=== PATIENT | male | born 1995 | race African-American/Black ===

== ENCOUNTER 2018-12-31 18:43 | Emergency (ER) | payer OTHER ==
[2018-12-31 19:36] VITALS: BP 135/79; PULSE 55; RESP 16; TEMP 98.3
[2018-12-31] MEDS ORDERED: LIDOCAINE 1% INJ 10MG/ML (20 ML MDV) SQ ONE (20:34)
--- NOTE | 2018-12-31 22:24 | ED ---
General Adult HPI - General Chief complaint: Wound/Laceration Stated complaint: hand lac Time Seen by Provider: 12/31/18 19:51 Source: patient Mode of arrival: ambulatory Limitations: no limitations - History of Present Illness Initial comments: Patient is a 23-year-old male presents to the emergency department for a laceration on his left hand. Patient states that he was working with a chisel when it slipped and lacerated his hand. Patient reports the laceration is causing mild pain that does not radiate anywhere. Patient reports mild the last period patient denies any numbness or tingling or limited range of motion. Patient denies taking any medication to relieve the pain. Patient denies fever, nausea, vomiting. Patient states that his tetanus status is up-to-date. Patient denies erythema, swelling. She denies any foreign bodies at the site of laceration. - Related Data Previous Rx's Medication Instructions Recorded Albuterol Inhaler [Ventolin Hfa 2 puff INHALATION Q4HR PRN #1 11/01/15 Inhaler] inhaler Azithromycin [Zithromax Z-pack] 250 mg PO DIRECTED #6 tab 11/01/15 Allergies Allergy/AdvReac Type Severity Reaction Status Date / Time No Known Allergies Allergy Verified 12/31/18 19:36 Review of Systems ROS Statement: Those systems with pertinent positive or pertinent negative responses have been documented in the HPI. ROS Other: All systems not noted in ROS Statement are negative. Past Medical History Past Medical History: No Reported History History of Any Multi-Drug Resistant Organisms: None Reported Past Surgical History: Adenoidectomy, Tonsillectomy Past Psychological History: No Psychological Hx Reported Smoking Status: Current every day smoker Past Alcohol Use History: Occasional Past Drug Use History: Marijuana General Exam Limitations: no limitations General appearance: alert, in no apparent distress Head exam: Present: atraumatic, normocephalic, normal inspection Eye exam: Present: normal appearance, PERRL, EOMI Pupils: Present: normal accommodation ENT exam: Present: normal exam Neck exam: Present: normal inspection Respiratory exam: Present: normal lung sounds bilaterally Cardiovascular Exam: Present: regular rate, normal rhythm, normal heart sounds GI/Abdominal exam: Present: soft Extremities exam: Present: normal capillary refill, other (3 cm laceration on the palmar aspect of the left hand. +2 radial and ulnar pulses.) Back exam: Present: normal inspection. Absent: CVA tenderness (R), CVA tenderness (L) Neurological exam: Present: alert Psychiatric exam: Present: normal affect, normal mood Skin exam: Present: warm, intact, normal color Course Vital Signs 12/31/18 19:34 Temperature 98.3 F Pulse Rate 55 L Respiratory 16 Rate Blood Pressure 135/79 O2 Sat by Pulse 100 Oximetry Procedures - Laceration Laceration #1 Consent Obtained: verbal consent Indication: laceration Site: hand Size (cm): 3 Description: linear Depth: simple, single layer Anesthetic Used: lidocaine 1% Anesthesia Technique: local infiltration Amount (mls): 10 Pre-repair: irrigated extensively Type of Sutures: nylon Size of Sutures: 4-0 Number of Sutures: 6 Technique: simple, interrupted Patient Tolerated Procedure: well Medical Decision Making - Medical Decision Making Patient is a 23-year-old male presents emergency department for a laceration to left hand. I repaired the laceration with 6 sutures. Patient was advised on proper wound care structures. Patient advised to follow-up primary care. Patient advised to return to emergency department if symptoms worsen. No tetanus prophylaxis was necessary. Patient advised to return for suture removal in 10 days. Case discussed with physician. Disposition Clinical Impression: Laceration Disposition: HOME SELF-CARE Condition: Stable Instructions (If sedation given, give patient instructions): Laceration (DC) Additional Instructions: Please return for suture removal in 10 days. Please follow up primary care. Please return to emergency department if symptoms worsen. Is patient prescribed a controlled substance at d/c from ED?: No Referrals: None,Stated [Primary Care Provider] - 1-2 days Time of Disposition: 22:24
== END 2018-12-31 22:51 | disposition home or self-care (01) ==
LOC: EC 18:43
DX: S61.412A Laceration without foreign body of left hand, initial encounter (principal); F17.200 Nicotine dependence, unspecified, uncomplicated; W27.0XXA Contact with workbench tool, initial encounter; Y93.89 Activity, other specified
CPT/HCPCS: 99282; 12002; J2001